=== PATIENT | male | born 1970 | race Caucasian/White ===

== ENCOUNTER 2017-12-16 16:49 | Inpatient (IN) | payer MEDICAID ==
[~2017-12-16] VITALS: Ht 182.9 cm; Wt 93.7 kg
[2017-12-16] MEDS ORDERED: FLUO-191 PO (20:34)
[2017-12-16] MEDS ORDERED: PROP10TA73 PO (20:34)
[2017-12-16 20:35] LABS: BASOPHILS % (AUTO) 0.4 % (0.0-2.0); HEMATOCRIT 49.2 % (41-53); LYMPHOCYTES # (AUTO) 1.9 K/uL (1.0-4.8); LYMPHOCYTES % (AUTO) 31.3 % (22.0-44.0); MEAN CORPUSCULAR HEMOGLOBIN 33.1 pg (26.0-34.0); MEAN CORPUSCULAR HGB CONC 34.5 G/dL (31.0-37.0); MEAN CORPUSCULAR VOLUME 96 fL (80-100); MONOCYTES # (AUTO) 0.3 K/uL (0.1-1.0); MONOCYTES % (AUTO) 5.7 % (2.0-9.0); NEUTROPHILS # (AUTO) 3.7 K/uL (1.8-7.7); NEUTROPHILS % (AUTO) 61.6 % (40.0-70.0); PLATELET COUNT (AUTO) 281 K/uL (150-450); RED BLOOD CELL COUNT(AUTO) 5.14 MIL/uL (4.50-5.90); RED CELL DISTRIBUTION WIDTH 14.5 % (11.5-14.5)
[2017-12-16 20:56] LABS: ANION GAP 11 mmol/L (8-16); CALCIUM, TOTAL 8.3 mg/dL (8.8-10.5); CARBON DIOXIDE 27 mmol/L (22-29); CHLORIDE 106 mmol/L (98-107); CREATININE 1.07 mg/dL (0.60-1.30); GLOMERULAR FILTR. RATE CALC > 60 mL/min (>60); GLUCOSE,RANDOM 86 mg/dL (70-110); POTASSIUM 4.4 mmol/L (3.5-5.1); SODIUM SERUM 144 mmol/L (136-145); UREA NITROGEN, BLOOD 10 mg/dL (7-18)
[2017-12-16 20:56] LABS: AMPHET/METH SCREEN,URINE NEGATIVE (NEGATIVE); BARBITURATE SCREEN, URINE NEGATIVE (NEGATIVE); BENZODIAZEPINES SCREEN,URINE NEGATIVE (NEGATIVE); CANNABINOID SCREEN,URINE NEGATIVE (NEGATIVE); COCAINE SCREEN,URINE NEGATIVE (NEGATIVE); METHADONE SCREEN, URINE NEGATIVE (NEGATIVE); OPIATE SCREEN,URINE NEGATIVE (NEGATIVE)
[2017-12-16] MEDS ORDERED: LORazepam 2 MG TABLET PO PRN (21:00)
[2017-12-16] MEDS ORDERED: HALOPERIDOL 5 MG TABLET PO PRN (21:00)
[2017-12-16 21:01] LABS: ALANINE AMINOTRANSFERASE 32 U/L (12-78); ALBUMIN 3.5 g/dL (3.4-5.0); ALKALINE PHOSPHATASE 55 U/L (46-116); ASPARTATE AMINOTRANSFERASE 27 U/L (15-37); BILIRUBIN,TOTAL 0.3 mg/dL (0.1-1.0); TOTAL PROTEIN, SERUM 6.6 g/dL (6.4-8.2)
[2017-12-16 21:05] LABS: PHENCYCLIDINE SCREEN,URINE NEGATIVE (NEGATIVE)
[2017-12-17 03:00] LABS: CHOL/HDL RATIO 4.2 (4.2-7.3); CHOLESTEROL 262 mg/dL (131-200); HDL CHOLESTEROL 63 mg/dL (40-60); LDL CHOL (CALC.) 149 mg/dL (0-130); TRIGLYCERIDES 248 mg/dL (15-150)
[2017-12-17 14:13] VITALS: BP 154/84
[2017-12-17 14:26] VITALS: BP 154/84
[2017-12-17 16:00] VITALS: BP 124/66
[2017-12-17] MEDS: ZOLPIDEM TARTRATE 10 MG TABLET PO PRN (20:17)
[2017-12-17] MEDS ORDERED: DOCUSATE SODIUM 100 MG CAPSULE PO PRN (21:45)
[2017-12-17] MEDS ORDERED: ALBUTEROL SULFATE HFA 90 MCG/PUFF 8 GM INHALER IH PRN (21:45)
[2017-12-17] MEDS ORDERED: MAG HYDROX/AL HYDROX/SIMETH ES 30 ML SUSPENSION UDCUP PO PRN (21:45)
[2017-12-17] MEDS ORDERED: IBUPROFEN 400 MG TABLET PO PRN (21:45)
[2017-12-17] MEDS ORDERED: PETROLATUM,WHITE 71 GM JELLY TP PRN (21:45)
[2017-12-17] MEDS ORDERED: ACETAMINOPHEN 325 MG TABLET PO PRN (21:45)
[2017-12-17] MEDS ORDERED: ONDANSETRON HCL 4 MG TABLET PO PRN ×2 (21:45)
[2017-12-17] MEDS ORDERED: MAGNESIUM HYDROXIDE SUSPENSION 30 ML UDCUP PO PRN (21:45)
[2017-12-18 06:09] VITALS: BP 126/68
[2017-12-18 08:02] LABS: HEMOGLOBIN A1C 5.3 % (4.5-6.2)
[2017-12-18 08:19] VITALS: BP 130/70
[2017-12-18] MEDS: PROPRANOLOL HCL 10 MG TABLET PO SCH (08:22)
[2017-12-18 08:27] LABS: CHOL/HDL RATIO 3.7 (4.2-7.3); THYROID STIMULATING HORMONE 2.8 uIU/mL (0.36-3.74)
[2017-12-18] MEDS: NICOTINE 14 MG/24 HOUR PATCH TD SCH (09:00)
[2017-12-18 16:00] VITALS: BP 139/84
[2017-12-18] MEDS ORDERED: PROP20TA18 PO (18:55)
[2017-12-18] MEDS: ZOLPIDEM TARTRATE 10 MG TABLET PO PRN (20:16)
[2017-12-18] MEDS ORDERED: QUEtiapine FUMARATE 200 MG TABLET PO SCH (21:00)
[2017-12-19 05:37] VITALS: BP 132/87
[2017-12-19 08:17] VITALS: BP 136/88
[2017-12-19] MEDS: NICOTINE 14 MG/24 HOUR PATCH TD SCH (09:00)
[2017-12-19] MEDS ORDERED: QUEtiapine FUMARATE 100 MG TABLET PO SCH (09:00)
[2017-12-19] MEDS: PROPRANOLOL HCL 10 MG TABLET PO SCH (09:27)
[2017-12-19] MEDS ORDERED: QUET50TA PO (15:26)
[2017-12-19] MEDS ORDERED: PROP10TA73 PO (15:26)
[2017-12-19] MEDS ORDERED: QUET200T PO (15:26)
[2017-12-19 16:04] VITALS: BP 112/73
== END 2017-12-19 17:06 | disposition home or self-care (01) | DRG 750 ==
LOC: EDBD → EMS 16:50 → B3A 12-17 11:50 → EDBD 12-17 11:50
PROVIDERS: ADMIT Psychiatry & Neurology Psychiatry; ATTEND Psychiatry & Neurology Psychiatry
DX: F25.9 Schizoaffective disorder, unspecified (principal); I10 Essential (primary) hypertension; F10.10 Alcohol abuse, uncomplicated; E78.5 Hyperlipidemia, unspecified; F32.9 Major depressive disorder, single episode, unspecified; Z71.41 Alcohol abuse counseling and surveillance of alcoholic
CPT/HCPCS: 83036; 84443; 99285; G0480